=== PATIENT | male | born 1990 | race Caucasian/White ===

== ENCOUNTER 2016-11-09 02:19 | Emergency (ER) | payer MEDICAID ==
[~2016-11-09] VITALS: Ht 162.6 cm; Wt 50.8 kg
[2016-11-09 02:22] VITALS: BP 116/78
== END 2016-11-09 02:45 | disposition home or self-care (01) ==
LOC: ED 02:30
DX: K02.9 Dental caries, unspecified (principal)
CPT/HCPCS: 99283

== ENCOUNTER 2017-02-27 11:30 | Inpatient (IN) | payer MEDICAID ==
[~2017-02-27] VITALS: Ht 165.1 cm; Wt 56.4 kg
[2017-02-27] MEDS ORDERED: SODIUM CHLORIDE 0.9% 1,000 ML IV ONE (11:44)
[2017-02-27] MEDS ORDERED: ONDANSETRON 2MG/ML, 2ML ONE ×2 (11:54→15:44)
[2017-02-27] MEDS ORDERED: HYDROmorphone 1 MG/ML, 1ML ONE ×2 (11:54→12:22)
[2017-02-27] MEDS: HYDROmorphone 1 MG/ML, 1ML IVPush PRN ×2 (11:58→12:24)
[2017-02-27] MEDS ORDERED: SODIUM CHLORIDE FLUSH 10ML SYR IVF ONE (12:00)
[2017-02-27] MEDS ORDERED: ONDANSETRON 2MG/ML, 2ML IVPush ONE (12:00)
[2017-02-27] MEDS ORDERED: SODIUM CHLORIDE 0.9% 1,000ML IVBOLUS ONE (12:00)
[2017-02-27 12:42] LABS: HEMATOCRIT 46.7 % (39.2-51.8); HEMOGLOBIN 15.7 g/dL (13.7-18.0); WHITE BLOOD COUNT 7.8 x10^3/uL (3.4-10)
[2017-02-27 12:46] LABS: BLOOD UREA NITROGEN 6 mg/dL (7-18)
[2017-02-27] MEDS ORDERED: BUPIVACAINE/PF 0.5% ONE (15:09)
[2017-02-27] MEDS ORDERED: FENTANYL PF 100 MCG/2ML ONE ×2 (15:09)
[2017-02-27] MEDS ORDERED: MIDAZOLAM 1 MG/ML, 2ML ONE (15:09)
[2017-02-27] MEDS ORDERED: KETAMINE 10 MG/ML, 20ML ONE ×2 (15:09→15:44)
[2017-02-27] MEDS ORDERED: BUPIVACAINE/PF-EPI 0.25% 1:200K ONE (15:26)
[2017-02-27] MEDS ORDERED: ROCURONIUM 10 MG/ML ONE (15:44)
[2017-02-27] MEDS ORDERED: KETOROLAC 30 MG/1 ML ONE (15:44)
[2017-02-27] MEDS ORDERED: GLYCOPYRROLATE 0.2MG/1ML, 5ML ONE (15:44)
[2017-02-27] MEDS ORDERED: NEOSTIGMINE 1 MG/ML, 10ML ONE (15:44)
[2017-02-27] MEDS ORDERED: PROPOFOL 10 MG/ML, 20ML ONE (15:44)
[2017-02-27] MEDS ORDERED: CEFAZOLIN 1,000 MG ONE (15:44)
[2017-02-27] MEDS ORDERED: DEXAMETHASONE 4 MG/ML, 1ML ONE (15:44)
[2017-02-27] MEDS ORDERED: SUCCINYLCHOLINE 20 MG/ML, 10ML ONE (15:44)
[2017-02-27] MEDS ORDERED: PROMETHAZINE 25 MG/ML, 1ML IV PRN (17:00)
[2017-02-27] MEDS ORDERED: FENTANYL PF 100 MCG/2ML IV PRN (17:00)
[2017-02-27] MEDS ORDERED: MEPERIDINE/PF 25MG/0.5ML IVPush PRN (17:00)
[2017-02-27] MEDS ORDERED: OXYcodone 5 MG/5 ML ORAL.SOL UDC PO PRN (17:00)
[2017-02-27] MEDS ORDERED: HYDROmorphone 1 MG/ML, 1ML IV PRN (17:00)
[2017-02-27] MEDS ORDERED: ACETAMINOPHEN 325 MG TABLET PO PRN (17:00)
[2017-02-27 19:27] VITALS: BP 119/71
[2017-02-27] MEDS ORDERED: ONDANSETRON 2MG/ML, 2ML IVPush PRN (19:30)
[2017-02-27] MEDS ORDERED: DIPHENHYDRAMINE 25 MG CAPSULE PO PRN (19:30)
[2017-02-27] MEDS ORDERED: morphine SULFATE 10 MG/ML, 1ML IVPush PRN (19:30)
[2017-02-27] MEDS: OXYcodone/APAP 5/325MG TABLET PO PRN (20:42)
[2017-02-27] MEDS: DOCUSATE 100 MG CAPSULE PO SCH (21:17)
[2017-02-27] MEDS: D5%-0.45NACL+KCL 20MEQ 1,000 ML IV SCH (21:17)
[2017-02-27 23:34] VITALS: BP 124/77
[2017-02-28 02:30] VITALS: BP 123/63
[2017-02-28] MEDS: OXYcodone/APAP 5/325MG TABLET PO PRN ×2 (03:23→09:58)
[2017-02-28] MEDS: D5%-0.45NACL+KCL 20MEQ 1,000 ML IV SCH ×2 (04:45→07:58)
[2017-02-28 07:07] VITALS: BP 124/72
[2017-02-28] MEDS: DOCUSATE 100 MG CAPSULE PO SCH (07:57)
[2017-02-28 11:36] VITALS: BP 123/69
[2017-02-28] MEDS ORDERED: OXYC-302 PO (11:53)
[2017-02-28] MEDS ORDERED: DOCU-131 PO (11:54)
== END 2017-02-28 12:00 | disposition home or self-care (01) | DRG 352 ==
LOC: ED 14:00 → EDIP 14:01 → ED 14:04 → 4NOR 18:48 → DCLOUNGE 02-28 11:50
PROVIDERS: ADMIT Surgery; ATTEND Surgery
PROC: 0YU60JZ Supplement Left Inguinal Region with Synthetic Substitute, Open Approach (ICD-10-PCS; principal; 2017-02-27 15:00)
DX: K40.30 Unilateral inguinal hernia, with obstruction, without gangrene, not specified as recurrent (principal); F12.90 Cannabis use, unspecified, uncomplicated; N43.3 Hydrocele, unspecified
CPT/HCPCS: 36415; 76870; 80048; 82040; 85025; 93975; 96361; 96374; 96375; J0690; J1100; J1170; J1885; J2250; J2405; J2704; J2710; J3010; J3490; C1781; J0330; J3480; J7030

== ENCOUNTER 2017-09-06 09:25 | Emergency (ER) | payer MEDICAID ==
[~2017-09-06] VITALS: Ht 165.1 cm; Wt 56.7 kg
[~2017-09-06 09:25] MED LIST: DOCU-131 PO; OXYC-302 PO
[2017-09-06] MEDS ORDERED: AZITHROMYCIN 500 MG TABLET ONE (09:54)
[2017-09-06] MEDS ORDERED: CEFTRIAXONE 250 MG ONE (09:54)
[2017-09-06] MEDS ORDERED: LIDOCAINE-MPF 1%, 2ML ONE (09:54)
[2017-09-06] MEDS ORDERED: AZITHROMYCIN 500 MG TABLET PO ONE (10:00)
[2017-09-06] MEDS ORDERED: CEFTRIAXONE 250 MG IM ONE (10:00)
[2017-09-06 10:25] LABS: MICROSCOPIC NOT IND
[2017-09-06 10:31] LABS: CULTURE INDICATED? NO
[2017-09-06 10:47] VITALS: BP 119/74
== END 2017-09-06 10:50 | disposition home or self-care (01) ==
LOC: ED 10:40
DX: Z20.2 Contact with and (suspected) exposure to infections with a predominantly sexual mode of transmission (principal); F17.210 Nicotine dependence, cigarettes, uncomplicated
CPT/HCPCS: 81003; 87491; 87591; 96372; 99284; J0696

== ENCOUNTER 2018-04-05 08:43 | Emergency (ER) | payer MEDICAID, MEDICARE ==
[~2018-04-05] VITALS: Ht 165.1 cm; Wt 62.0 kg
[2018-04-05 08:51] VITALS: BP 96/64
[2018-04-05 09:50] LABS: RAPID INFLUENZA A Negative (Negative); RAPID INFLUENZA B Negative (Negative)
== END 2018-04-05 10:15 | disposition home or self-care (01) ==
LOC: ED 09:00
DX: J06.9 Acute upper respiratory infection, unspecified (principal)
CPT/HCPCS: 71046; 87400; 99285